=== PATIENT | female | born 1990 | race Caucasian/White ===

== ENCOUNTER 2020-05-21 16:36 | Outpatient (CLI) | payer OTHER, SELFPAY ==
--- NOTE | ~2020-05-21 | US_ITS ---
EXAMINATION: US OB /maternal detail DATE: 05/21/2020 19:01 INDICATION: Encounter for other specified screening. TECHNIQUE: Real-time ultrasound of the pelvis was performed. COMPARISON: None. FINDINGS: There is a single living fetus in vertex presentation. The placenta is fundal. heart rate is 1 57 beats per minute (bpm). The amniotic fluid volume is subjectively normal. The following biometric data were obtained: Biparietal diameter (BPD): 4.4 cm; head circumference (HC): 16.2 cm; abdominal circumference (AC): 12 .6 cm; femur length (FL): 3.0 cm. These measurements are discordant with HC/AC ratio > 95th percentile. Estimated weight is 255 g +/- 38 g, which correlates with 24th percentile when 10/14/20 is used a s estimated date of delivery. As single measurements, these parameters are each equal to the following estimated gestational ages: BPD: 19 weeks 1 days. HC: 19 weeks 0 days. AC: 18 weeks 1 days. FL: 19 weeks 2 days. estimated gestational age based solely on measurements from this exam is 18 weeks 6 days +/- 1 weeks 2 days. The cerebral ventricles, cerebellum, cisterna magna, nuchal fold, and visualized portions of the spin e are normal. The heart is normal. The diaphragm, stomach, kidneys, and bladder are normal. There are two umbilical arteries to yield a 3-vessel cord. The cord insertion is normal. IMPRESSION: 1. Single living fetus in vertex presentation. 2. Estimated weight is 255 g +/- 38 g, which correlates with 24th percentile when 10/14/20 is us ed as estimated date of delivery. 3. Normal anatomic survey. 4. HC/AC ratio > 95th percentile. Reviewed, dictated and finalized at location A. IMPRESSION: 1. Single living fetus in vertex presentation. 2. Estimated weight is 255 g +/- 38 g, which correlates with 24th percen tile when 3/8/21 is used as estimated date of delivery. 3. Normal anatomic survey. 4. HC/AC ratio > 95th percentile.
== END 2020-05-21 16:37 | disposition home or self-care (01) ==
PROVIDERS: Visit Provider Obstetrics & Gynecology
DX: Z36.89 Encounter for other specified antenatal screening (principal)
CPT/HCPCS: 76805

== ENCOUNTER 2020-08-13 15:30 | Outpatient (RCR) | payer OTHER, SELFPAY ==
[2020-08-13 15:38] VITALS: BMI 32.9
[2020-08-13 15:39] VITALS: BMI 32.9
== END 2020-10-21 14:42 | disposition home or self-care (01) ==
LOC: ANHDMC 15:30
PROVIDERS: Visit Provider Obstetrics & Gynecology
DX: O24.419 Gestational diabetes mellitus in pregnancy, unspecified control (principal); Z3A.00 Weeks of gestation of pregnancy not specified; Z71.3 Dietary counseling and surveillance; Z71.89 Other specified counseling
CPT/HCPCS: 97802; G0108

== ENCOUNTER 2020-08-23 14:31 | Outpatient (CLI) | payer OTHER, SELFPAY ==
--- NOTE | ~2020-08-23 | US_ITS ---
EXAMINATION: US OB follow up DATE: 08/23/2020 15:10 INDICATION: Gestational diabetes, third trimester TECHNIQUE: Real-time ultrasound of the pelvis was performed. The interpreting radiologist was not pre sent for the study. COMPARISON: 05/21/2020 FINDINGS: There is a single living fetus in breech presentation. The placenta is fundal/posterior. Fe mica cardiac activity and movement are noted. heart rate is 169 beats per minute (bpm). Th e amniotic fluid index is 10.3 cm which is normal. The following biometric data were obtained: Biparietal diameter (BPD): 8.0 cm; head circumference (HC): 19.4 cm; abdominal circumference (AC): 26 .2 cm; femur length (FL): 5.8 cm. These measurements are concordant. Estimated weight is 1630 g +/- 244 g, which correlates with the 5th percentile when 10/14/2020 is used as estimated date of delivery. As single measurements, these parameters are each equal to the following estimated gestational ages w ith ranges of +/- 2 standard deviations: BPD: 32 weeks 3 days +/- 3 weeks 1 days. HC: 32 weeks 3 days +/- 3 weeks 0 days. AC: 30 weeks 3 days +/- 3 weeks 0 days. FL: 30 weeks 3 days +/- 3 weeks 0 days. estimated gestational age based solely on measurements from this exam is 31 weeks 3 days +/- 2 weeks 1 days. IMPRESSION: 1. Single living fetus in breech presentation. 2. Normal amniotic fluid index. 3. Estimated weight is 1630 g +/- 244 g, which correlates with the 5th percentile when 10/14/2020 is used as estimated date of delivery. Reviewed, dictated and finalized at location A. NE METEOROLOGIST IMPRESSION: 1. Single living fetus in breech presentation. 2. Normal amniotic fluid index. 3. Estimated weight is 1630 g +/- 244 g, which correlates with the 5th pe rcentile when 10/14/2020 is used as estimated date of delivery.
== END 2020-08-23 14:32 | disposition home or self-care (01) ==
PROVIDERS: Visit Provider Obstetrics & Gynecology
DX: Z36.9 Encounter for antenatal screening, unspecified (principal); Z3A.31 31 weeks gestation of pregnancy
CPT/HCPCS: 76816

== ENCOUNTER 2020-09-09 16:32 | Outpatient (CLI) | payer OTHER, SELFPAY ==
[2020-09-09 17:24] LABS: Collection Time Urine 24 HOURS
[2020-09-09 17:25] LABS: Hematocrit 36.4 % (37.0-47.0); Hemoglobin 12.3 g/dL (12.0-15.0); Mean Corpuscular HGB Conc 33.8 g/dl (32-36); Mean Corpuscular Hemoglobin 30.7 pg (26-34); Mean Corpuscular Volume 90.8 fl (80-100); Mean Platelet Volume 11.3 fl (7.4-10.4); Platelet Count Result 203 k/mm3 (150-375); Red Blood Count 4.01 M/mm3 (4.2-5.4); Red Cell Distribution Width 14.5 % (11.5-14.5); White Blood Count 12.7 K/mm3 (4.5-10.0)
[2020-09-09 17:40] LABS: Alanine Aminotransferase 15 U/L (4-35); Albumin Level 3.3 g/dL (3.5-5.1); Alkaline Phosphatase 153 U/L (38-126); Anion Gap 6 mmol/L (8-16); Aspartate Amino Transferase 24 U/L (14-36); Bilirubin,Total 0.2 mg/dL (0.2-1.3); Blood Urea Nitrogen 10 mg/dL (7-17); Calcium 9.2 mg/dL (8.4-10.2); Carbon Dioxide 23 mmol/L (22-30); Chloride 107 mmol/L (98-107); Estimated Glomerular Filt Rate > 60; Glucose 68 mg/dL (65-105); Sodium 136 mmol/L (137-145); Uric Acid 4.5 mg/dL (2.5-7.5)
[2020-09-09 18:11] LABS: Total Volume 24 Hour Urine 2300 ml
[2020-09-09 18:12] LABS: Patient Weight 182 Lbs
[2020-09-09 19:17] LABS: Creatinine Clearance Urine 163.1 ml/min (75-125); Creatinine Urine 43.2 mg/dL; Total Protein Urine 24 Hr 276 MG/DAY (28-141); Total Protein Urine Random 12 mg/dL
== END 2020-09-09 16:33 | disposition home or self-care (01) ==
LOC: ANHLAB 16:34
PROVIDERS: Visit Provider Obstetrics & Gynecology
DX: O10.919 Unspecified pre-existing hypertension complicating pregnancy, unspecified trimester (principal); Z3A.00 Weeks of gestation of pregnancy not specified
CPT/HCPCS: 36415; 80053; 81050; 82575; 84156; 84550; 85027

== ENCOUNTER 2020-09-17 16:35 | Inpatient (IN) | payer OTHER, SELFPAY ==
[2020-09-17] VITALS (19 sets, daily range): BP systolic 124–172; BP diastolic 67–100; PULSE 79–101; RESP 20; TEMP 36.9–37.3; O2SAT 100; BMI 33.7
[2020-09-17 17:50] LABS: Basophils Percent Auto 0.2 % (0.2-1.2); Eosinophils Absolute Auto 0.1 K/mm3 (0-0.3); Hematocrit 41.1 % (37.0-47.0); Hemoglobin 13.9 g/dL (12.0-15.0); Immature Granulocyte Absolute 0.05 K/mm3 (0.00-0.031); Immature Granulocyte Percent A 0.4 % (0-0.5); Lymphocytes Absolute Auto 2.77 K/mm3 (0.9-3.2); Lymphocytes Percent Auto 22.2 % (18.3-44.2); Mean Corpuscular HGB Conc 33.8 g/dl (32-36); Mean Corpuscular Hemoglobin 30.2 pg (26-34); Mean Corpuscular Volume 89.3 fl (80-100); Mean Platelet Volume 10.8 fl (7.4-10.4); Monocytes Absolute Auto 1.1 K/mm3 (0.1-0.6); Monocytes Percent Auto 8.7 % (2.6-8.5); Neutrophils Absolute Auto 8.4 K/mm3 (1.3-6.7); Neutrophils Percent Auto 67.5 % (45.5-73.1); Platelet Count Result 226 k/mm3 (150-375); Red Cell Distribution Width 14.7 % (11.5-14.5); White Blood Count 12.5 K/mm3 (4.5-10.0)
[2020-09-17 18:01] LABS: Uric Acid 4.6 mg/dL (2.5-7.5)
[2020-09-17] MEDS: LACTATED RINGERS 1,000 ML 75 ML IV CONT (18:11)
[2020-09-17 18:13] LABS: Alanine Aminotransferase 20 U/L (4-35); Albumin Level 3.7 g/dL (3.5-5.1); Alkaline Phosphatase 204 U/L (38-126); Anion Gap 5 mmol/L (8-16); Aspartate Amino Transferase 29 U/L (14-36); Bilirubin,Total 0.3 mg/dL (0.2-1.3); Blood Urea Nitrogen 10 mg/dL (7-17); Calcium 9.3 mg/dL (8.4-10.2); Carbon Dioxide 23 mmol/L (22-30); Chloride 107 mmol/L (98-107); Estimated Glomerular Filt Rate > 60; Glucose 78 mg/dL (65-105); Potassium 4.1 mmol/L (3.4-5.0); Sodium 135 mmol/L (137-145)
[2020-09-17] MEDS: MAGNESIUM SULF 4 GM/WATER100ML 4 GM/100 ML BAG IVPB (18:18)
[2020-09-17] MEDS: DINOPROSTONE 10 MG VAG INSERT VAGINAL (18:22)
[2020-09-17] MEDS: BETAMETHASONE SOD PHOS/ACETATE 30 MG/5 ML VIAL 12 MG IM (18:26)
--- NOTE | 2020-09-17 18:30 | LDADM ---
This patient, Jaja Nicolas, was admitted to Labor/Delivery/Recovery 108 on 09/17/20 at 16:35. Plans for labor, pain management and were discussed with patient. Patient/family oriented to hospital policies and general routines including ID bracelet, bed and alarms, visiting hours, pain management, procedures, bathroom and other care routines, personal items, smoking policy, room service/diet and guest tray routines, infant security routines, and visiting hours. Patient/Family are encouraged to report perceived risks to care and to ask questions if they do not understand what they are told or what they should do. See OBIX for further documentation.
[2020-09-17 18:31] LABS: Glucose Point of Care 73 (65-105)
[2020-09-17] MEDS: MAGNESIUM SULF 20GM/WATER500ML 500 ML 50 MG IV CONT (18:50)
--- NOTE | 2020-09-17 19:06 | WPDANESEPP ---
Anes - Eval Pre Procedure Procedure: Labor epidural Date/Time: 09/17/20 19:06 Surgeon: Sean Preop Diagnosis: Abd pain with contractions Pre Op Diagnosis: Induction of Labor Patient Data Age: 30 Gender: F Height: Weight: Last Vital Signs Pulse 94 09/17/20 19:00 BP 147/98 H 09/17/20 19:00 Pulse Ox 100 09/17/20 17:50 Allergies Allergy/AdvReac Type Severity Reaction Status Date / Time clarithromycin Allergy Unknown hives Verified 09/13/20 11:14 Home Medications Medication Instructions Recorded Confirmed Type loratadine 10 mg tablet 10 mg PO DAILY PRN 05/01/20 09/17/20 History blood sugar diagnostic #400 ea 08/05/20 Rx blood-glucose meter #1 ea 08/05/20 History lancets #100 ea 08/05/20 History PNV cmb#95-ferrous fumarate-FA 1 tablet PO DAILY 09/16/20 09/17/20 History [] nifedipine 30 mg PO HS 09/17/20 09/17/20 History Laboratory Tests 09/17/20 09/17/20 09/17/20 17:40 17:40 17:40 WBC 12.5 K/mm3 H K/mm3 (4.5-10.0) RBC 4.60 M/mm3 M/mm3 (4.2-5.4) Hgb 13.9 g/dL g/dL (12.0-15.0) Hct 41.1 % % (37.0-47.0) MCV 89.3 fl fl (80-100) MCH 30.2 pg pg (26-34) MCHC 33.8 g/dl g/dl (32-36) RDW 14.7 % H % (11.5-14.5) Plt Count 226 k/mm3 k/mm3 (150-375) MPV 10.8 fl H fl (7.4-10.4) Immature Gran % (Auto) 0.4 % % (0-0.5) Neut % (Auto) 67.5 % % (45.5-73.1) Lymph % (Auto) 22.2 % % (18.3-44.2) [place] % (Auto) 8.7 % H % (2.6-8.5) Eos % (Auto) 1.0 % % (0-4.4) Baso % (Auto) 0.2 % % (0.2-1.2) Lymph # (Auto) 2.77 K/mm3 K/mm3 (0.9-3.2) [place] # (Auto) 1.1 K/mm3 H K/mm3 (0.1-0.6) Eos # (Auto) 0.1 K/mm3 K/mm3 (0-0.3) Baso # (Auto) 0.0 K/mm3 K/mm3 (0.0-0.1) Abs Immat Gran (auto) 0.05 K/mm3 H K/mm3 (0.00-0.031) Absolute Neuts (auto) 8.4 K/mm3 H K/mm3 (1.3-6.7) Absolute Nucleated RBC 0.0 K/mm3 K/mm3 (0.0-0.012) Nucleated RBC % 0.0 % % (0.0-0.2) Sodium 135 mmol/L L mmol/L (137-145) Potassium 4.1 mmol/L mmol/L (3.4-5.0) Chloride 107 mmol/L mmol/L (98-107) Carbon Dioxide 23 mmol/L mmol/L (22-30) Anion Gap 5 mmol/L L mmol/L (8-16) BUN 10 mg/dL mg/dL (7-17) Creatinine 0.40 mg/dL L mg/dL (0.7-1.0) Estim Creat Clear Calc Not Reportable Estimated GFR > 60 (59 - ) Glucose 78 mg/dL mg/dL (65-105) POC Capillary Glucose Uric Acid 4.6 mg/dL mg/dL (2.5-7.5) Calcium 9.3 mg/dL mg/dL (8.4-10.2) Total Bilirubin 0.3 mg/dL mg/dL (0.2-1.3) AST 29 U/L U/L (14-36) ALT 20 U/L U/L (4-35) Alkaline Phosphatase 204 U/L H U/L (38-126) Total Protein 7.0 g/dL g/dL (6.3-8.2) Albumin 3.7 g/dL g/dL (3.5-5.1) RPR 02/09/21 02/09/21 17:41 18:07 WBC RBC Hgb Hct MCV MCH MCHC RDW Plt Count MPV Immature Gran % (Auto) Neut % (Auto) Lymph % (Auto) [place] % (Auto) Eos % (Auto) Baso % (Auto) Lymph # (Auto) [place] # (Auto) Eos # (Auto) Baso # (Auto) Abs Immat Gran (auto) Absolute Neuts (auto) Absolute Nucleated RBC Nucleated RBC % Sodium Potassium Chloride Carbon Dioxide Anion Gap BUN Creatinine Estim Creat Clear Calc Estimated GFR Glucose POC Capillary Glucose 73 mg/dl mg/dl (65-105) Uric Acid Calcium Total Bilirubin AST ALT Alkaline Phosphatase Total Protein
[2020-09-17] MEDS: ACETAMINOPHEN 500 MG TABLET 1000 MG PO (19:59)
[2020-09-17 22:07] LABS: Glucose Point of Care 137 (65-105)
[2020-09-18] VITALS (113 sets, daily range): BP systolic 112–183; BP diastolic 42–105; PULSE 53–110; RESP 16–20; TEMP 36.6–37.4; O2SAT 80–100
[2020-09-18 02:05] LABS: Glucose Point of Care 153 (65-105)
[2020-09-18] MEDS: MAGNESIUM SULF 20GM/WATER500ML 500 ML 50 MG IV CONT ×2 (04:22→13:56)
[2020-09-18] MEDS: LACTATED RINGERS 1,000 ML 75 ML IV CONT ×2 (06:05→16:08)
[2020-09-18 06:17] LABS: Glucose Point of Care 140 (65-105)
[2020-09-18] MEDS: OXYTOCIN 30 UNITS/NS 500 ML 30 UNITS/500 ML BAG IV CONT (07:00)
--- NOTE | 2020-09-18 08:19 | PM.IMHP ---
H&P: HPI History of Present Illness Date/Time: 09/18/20 08:19 Chief Complaint: induction of labor Narrative: Jaja Nicolas is a 30 year old female G1 at 36+2 admitted 09/17 for induction of labor due to cHTN with superimposed preeclampsiia and IUGR per [facility] recommendations. She has slightly blurry vision since starting magnesiuim. She had one WHITE yesterday just after starting magnesium but it resolved with Tylenol. She feels contractions but not painful. Review of Systems Review of Systems: All systems reviewed & are unremarkable except as noted in HPI and below PMFSH Past Medical History Medical History Asthma Sports related EVANS I (cervical intraepithelial neoplasia I) 04/12/20 Gestational diabetes Hypertension affecting and not yet delivered Surgical History Surgical History History of colposcopy 04/12/20 [place] teeth removed Family History Family History Other Heart attack Hypertension Father Hyperlipidemia Hypertension Diabetes mellitus Grandparent Cerebrovascular accident Social History Social History Smoking status: Never smoker Alcohol intake: former Drinks per week: 10 Substance use: never Gender identity (if verbalized by the patient): Female Spiritual care concerns: No Meds Home Medications and Allergies Home Medications Medication Instructions Recorded Confirmed Type loratadine 10 mg tablet 10 mg PO DAILY PRN 05/01/20 09/17/20 History PNV cmb#95-ferrous fumarate-FA 1 tablet PO DAILY 09/16/20 09/17/20 History [] nifedipine 30 mg PO HS 09/17/20 09/17/20 History Allergies Allergy/AdvReac Type Severity Reaction Status Date / Time clarithromycin Allergy Unknown hives Verified 09/13/20 11:14 Vital Signs Vital Signs - 24 hr 09/17/20 17:34 09/17/20 17:45 09/17/20 17:49 Temperature Pulse Rate 79 79 Respiratory Rate Blood Pressure 172/98 H 159/93 H Pulse Oximetry 100 09/17/20 17:50 09/17/20 18:15 09/17/20 18:30 Temperature 37.3 C Pulse Rate 85 86 Respiratory Rate Blood Pressure 152/97 H 149/95 H Pulse Oximetry 100 09/17/20 18:45 09/17/20 18:50 09/17/20 19:00 Temperature Pulse Rate 87 94 Respiratory Rate 20 Blood Pressure 145/88 H 147/98 H Pulse Oximetry 09/17/20 19:15 09/17/20 19:30 09/17/20 19:45 Temperature Pulse Rate 88 92 99 Respiratory Rate Blood Pressure 124/69 138/75 152/97 H Pulse Oximetry 09/17/20 20:00 09/17/20 20:15 09/17/20 20:32 Temperature Pulse Rate 101 H 95 98 Respiratory Rate Blood Pressure 148/100 H 142/79 H 149/88 H Pulse Oximetry 09/17/20 20:45 09/17/20 21:00 09/17/20 22:04 Temperature 36.9 C Pulse Rate 97 96 99 Respiratory Rate 20 Blood Pressure 141/86 H 151/89 H 133/80 Pulse Oximetry 09/17/20 23:00 09/18/20 00:29 09/18/20 02:00 Temperature 36.7 C Pulse Rate 100 95 93 Respiratory Rate 18 Blood Pressure 155/67 H 138/76 147/83 H Pulse Oximetry 09/18/20 05:58 09/18/20 07:00 09/18/20 07:25 Temperature 36.6 C 36.6 C Pulse Rate 94 92 Respiratory Rate 20 Blood Pressure 147/85 H 156/89 H Pulse Oximetry 09/18/20 08:06 Temperature Pulse Rate 93 Respiratory Rate Blood Pressure 160/92 H Pulse Oximetry Exam Const: General: healthy appearing, no acute distress, alert and awake Resp: Auscultation: clear to auscultation bilaterally Cardio: Rate: regular rate Rhythm: regular rhythm GI: Inspection: non-distended GI Palp: Yes Soft to palpation, No Tenderness to palpation present (GI) and Yes Other GI palpation findings present (gravid) : Manual OB Exam: dilated 3 cm, effaced 25%, station -2 and other (soft, mid) Amniotic Fluid: clear (AROM performed with small andrew
[2020-09-18 10:05] LABS: Glucose Point of Care 129 (65-105)
[2020-09-18 12:08] LABS: Rapid Plasma Reagin Non-Reactive (NonReactive)
[2020-09-18 13:27] LABS: Glucose Point of Care 118 (65-105)
[2020-09-18 15:41] LABS: Glucose Point of Care 106 (65-105)
--- NOTE | 2020-09-18 16:02 | PM.OBPRVD ---
OB - Delivery Note Procedure Delivery date: 09/18/20 Procedure: events: Gestational Diabetes, Pre-Eclampsia and Labor Induction Intrapartal events: Severe Preeclampsia and Diabetes Induction method: AROM, per misoprostol protocol and per pitocin protocol Delivery monitor: external FHT and internal uterine Route of delivery: Laceration Description: Perineal - 2nd Degree Delivery repair: vicryl (2-0) Specimen: Yes Quantitative Blood Loss (ml): 132 Anesthesia type: Epidural Disposition: floor [place] Baby Date of : 09/18/20 Time of : 17:13 Weeks of gestation at delivery: 36 Infant gender: Female Weight (pounds): 4 Weight (ounces): 8 presentation: vertex position: Left Occiput Anterior Placenta delivery description: Spontaneous cord vessel description: 3 Vessels, Nuchal Cord, Loose, Reduced, Clamped/Cut and Delayed Cord Clamping score one minute: 8 score five minutes: 9
[2020-09-18] MEDS: OXYTOCIN 30 UNITS/NS 500 ML 30 UNITS/500 ML BAG 125 UNITS IV CONT (17:56)
--- NOTE | 2020-09-18 20:38 | OBPPTRN ---
Patient transferred to post room #283 via wheelchair. Support person present. Oriented to unit, room, information board, rooming in, admission packet and security measures. Patient verbalizes understanding.
[2020-09-18] MEDS: LABETALOL HCL 100 MG TABLET PO (22:28)
[2020-09-19] VITALS (9 sets, daily range): BP systolic 142–152; BP diastolic 81–96; PULSE 70–90; RESP 16–18; TEMP 36.6–36.8; O2SAT 99–100
[2020-09-19] MEDS: MAGNESIUM SULF 20GM/WATER500ML 500 ML 50 MG IV CONT ×2 (00:45→11:03)
[2020-09-19 04:59] LABS: Hematocrit 36.1 % (37.0-47.0); Hemoglobin 12.1 g/dL (12.0-15.0)
[2020-09-19] MEDS: LABETALOL HCL 100 MG TABLET PO ×2 (09:21→20:58)
[2020-09-19] MEDS: MULTIVIT/MIN/PREN/FOL AC/IRON TABLET 1 TAB PO (09:21)
--- NOTE | 2020-09-19 09:29 | WPDANLDPN2 ---
Anes-Prog Note L&D Date/Time: 09/19/20 09:29 Comfortable throughout: labor and delivery Neuraxial method: epidural Epidural/Spinal procedure site: clean & non-tender Neuro status: Neuro function grossly intact. Cardiovascular status: normal Respiratory status: normal Airway patency: baseline Mental status: baseline Post-Op hydration status: normal Vital Signs: Last Vital Signs Temp 36.7 C 09/19/20 04:00 Pulse 72 09/19/20 09:21 Resp 16 09/19/20 04:00 BP 142/95 H 09/19/20 04:00 Pulse Ox 99 09/19/20 04:00 Pain score (VAS): 3 I/O: Intake & Output 09/18/20 09/19/20 09/19/20 23:59 07:59 15:59 Intake Total 2400 1600 Output Total 100 2700 Balance 2300 -1100 Post-procedural complaints: none Patient feedback: Patient satisfied with anesthetic care.
--- NOTE | 2020-09-19 11:00 | PC.NURSE ---
0945 feeding note; visited with mother and present for feeding; Mother expressing strong preference to only breast feed baby; Per Dr. Muñoz today, baby can continue breast feeding, limiting at breast time to 10 minutes, and then is to be supplemented after breast feedings,with Similac Neosure 22 [place]. formula, and mother continue pumping. Nurse spent time explaining effective breast feedings, and teaching parents how to assess that baby is doing that, explaining that at 36 wks gestation baby is not able to give all the energy she needs to give to breast feed effectively and for as long as she needs to nurse each time. Baby unable to latch to breast, but did latch with nipple shield and demonstrated fairly vigorous sucking; baby did get sleepy after 10 minutes, and mother able to tell that baby's sucking was less effective after 10 minutes. FOB then bottle fed infant and mother pumped. Feeding plan of breast feed, bottle feed and pump started, and will continue q3h. Parents encouraged to call out for breast feeding assistance at every feeding. Mother reports that she has a Consult that she has already contacted. She will be talking to Sandy Mcleod RN IBCLC, with [employer]. Nurse affirmed her continued work with Sandy Mcleod after discharge.
--- NOTE | 2020-09-19 11:11 | PM.OBPNVD ---
OB - PN: Subj Subjective Date/time seen: 09/19/20 11:11 Patient comments: pain well controlled, tolerating diet and flatus present baby status: doing well feeding status: pumping and bottle feeding Narrative: Pain well controlled urinating without difficulty and UOP adequate on Mgso4 denies [place]/CP/SOB. blurry vision due to Mgso4. Baby girl doing well . Lochis like her menses OB - PN: Obj Data Labs CBC & Chem 7: 09/19/20 04:26 09/17/20 17:40 Labs: Laboratory Results - last 24 hr 09/17/20 09/18/20 09/18/20 17:41 13:24 15:35 Hgb Hct POC Capillary Glucose 118 H 106 RPR Non-reactive 09/19/20 04:26 Hgb 12.1 Hct 36.1 L POC Capillary Glucose RPR OB - PN A/P Assessment and Plan (1) Pre-eclampsia superimposed on chronic hypertension, delivered: Code(s): O11.4 - Pre-existing hypertension with pre-eclampsia, complicating childbirth; O10.92 - Unspecified pre-existing hypertension complicating childbirth Status: Acute Assessment and Plan: doing well BP in acceptable range on labetolol 100 mg bid No s/s of Mgso4 toxicity. will continue Mgso4 x 24 hr s/p diuresing well continue PP care. Time Spent With Patient Time: Total time spent is greater than 50% in coordination of care (as documented) at patient's floor/unit and/or counseling patient: Review of Systems Constitutional: Constitutional: Reports as per HPI, Denies chills, Denies fatigue and Denies headache(s) Eyes: Eyes: Reports as per HPI, Reports blurry vision (due to Mgso4), Denies change in vision and Denies diplopia ENT: Reports Normal hearing present Cardiovascular: Cardiovascular: Denies chest pain and Denies dyspnea Respiratory: Respiratory: Reports as per HPI, Denies cough and Denies dyspnea Gastrointestinal: Gastrointestinal: Reports as per HPI Genitourinary: Genitourinary: Reports as per HPI Exam Const: General: cooperative, healthy appearing, comfortable, no acute distress, well developed, alert, awake and Physically active Nutritional Appearance: well nourished Orientation/consciousness: patient oriented x3 Limitations: no limitations Resp: Effort & Inspection: able to speak in complete sentences Auscultation: clear to auscultation bilaterally Cardio: Rate: regular rate Rhythm: regular rhythm GI: Inspection: normal to inspection GI Palp: Yes Soft to palpation, Yes No hepatosplenomegaly present and Yes Other GI palpation findings present (fundus firm and below umbilicus) Auscultation: normal bowel sounds Rectal Exam: deferred Extrem: General: normal to inspection, full ROM and no calf tenderness Other: DTR +2 bilaterally
--- NOTE | 2020-09-19 15:45 | PC.NURSE ---
1430 pt states she wants to start hand expression to collect her breast milk. Nurse agreed, but pt also told to keep pumping at each feeding. She agreed. Baby's blood sugar more stable after supplementation started.
[2020-09-20 03:45] VITALS: BP 129/74; PULSE 70
[2020-09-20] MEDS: MULTIVIT/MIN/PREN/FOL AC/IRON TABLET 1 TAB PO (08:35)
[2020-09-20 08:36] VITALS: PULSE 76
[2020-09-20] MEDS: LABETALOL HCL 100 MG TABLET PO (08:36)
[2020-09-20 08:40] VITALS: BP 134/88; PULSE 76; RESP 18; TEMP 37.5; O2SAT 98
--- NOTE | 2020-09-20 09:29 | PM.OBPNVD ---
OB - PN: Subj Subjective Date/time seen: 09/20/20 09:29 Patient comments: no complaints, pain well controlled and other (Lochia similar to menses) [place] baby status: doing well Narrative: No WHITE, visual changes. Desires discharge home OB - PN: Obj Data Labs CBC & Chem 7: 09/19/20 04:26 09/17/20 17:40 OB - PN A/P Assessment and Plan (1) Pre-eclampsia superimposed on chronic hypertension, delivered: Code(s): O11.4 - Pre-existing hypertension with pre-eclampsia, complicating childbirth; O10.92 - Unspecified pre-existing hypertension complicating childbirth Status: Acute Assessment and Plan: Doing well with BP normal to mildly elevated on labetalol 100 mg bid. Continue labetalol and return to office in 1 week Plan day: 2 (s/p vaginal delivery, doing well) Plan: routine care, discharge home and other (Follow up in office in 1 week) Time Spent With Patient Time: Total time spent is greater than 50% in coordination of care (as documented) at patient's floor/unit and/or counseling patient: Exam Const: General: no acute distress GI: Inspection: other (Fundus firm and nontender below umbilicus) GI Palp: Yes Soft to palpation and No Tenderness to palpation present (GI) Extrem: General: no edema
--- NOTE | 2020-09-20 09:32 | P.DS_ITS ---
DS: Admitting Diagnosis Admitting Diagnosis Admitting Diagnosis: superimposed preeclampsia, IUGR DS: Discharge Diagnosis Discharge Diagnosis (1) Pre-eclampsia superimposed on chronic hypertension, delivered: Code(s): O11.4 - Pre-existing hypertension with pre-eclampsia, complicating childbirth; O10.92 - Unspecified pre-existing hypertension complicating childbirth Status: Acute (2) Encounter for induction of labor: Code(s): Z34.90 - Encounter for supervision of normal , unspecified, unspecified trimester Status: Acute OB - DS: Summary OB Procedures : PIH Mgmt OB Procedures Intrapartum: Spontaneous Vag Delivery OB Procedures: : None Peripartum Data Delivery Method: Natural Vaginal Laceration Description: Perineal - 2nd Degree Status at Discharge Functional status at discharge: independent ambulation Overall status at discharge: patient is progressing back to baseline Time Spent with Patient Time attestation: Total time spent providing and/or coordinating discharge services: Time spent: Less than 30 minutes DS: Data Data Completed and Pending Pending studies at discharge: Pending at discharge 09/18/20 17:27 Surgical [PTH] Routine Discharge Plan Discharge Attending physician on discharge: Christina Estrada Discharging Clinician: Christina Estrada Anticipated Discharge Date/Time: 09/20/20 17:00 Patient Disposition: Home, Self-Care Activity: may shower and pelvic rest Diet: as tolerated Patient Instructions: Antibiotic Form Stand Alone Forms: General Discharge Information Follow-up/Referrals: Christina Estrada MD [Physician] - 1 Week Discharge Medications: New ibuprofen 600 mg Tablet 600 mg PO Q6H PRN (Reason: Cramping) Qty: 60 RF: 0 labetalol 100 mg Tablet 100 mg PO Q12HR Qty: 60 RF: 0 Continued loratadine [Claritin] 10 mg tablet 10 mg PO DAILY PRN (Reason: Congestion) RF: 0 PNV cmb#95-ferrous fumarate-FA [] 28 mg iron- 800 mcg Tablet 1 tablet PO DAILY RF: 0 Discontinued nifedipine 30 mg tablet extended release 24hr 30 mg PO HS RF: 0 Date of admission: 09/17/20 16:35 Primary Care Provider: PHYSICIAN,CRUSHER SUPERVISOR Admitting Provider: Christina Estrada Attending physician on admission: Christina Estrada Condition: Stable
--- NOTE | 2020-09-20 09:32 | PC.NURSE ---
Consulted with patient, reviewed feeding cues, frequencies, duration of feedings, feeding elimination flow sheet, and signs of adequate intake. Encourage mom to call out for next feeding to have feeding assessed and to help patient with self expression. Nipple care reviewed. Instructed mother to call out for RN assistance if she is unable to latch infant for feeding or she has discomfort with nursing. Instructed feeding should be initiated three hours from start of last feeding or if feeding cues are noted before. Mother voiced understanding of information shared. Mother verbalizes she is able to independently latch infant with appropriate positioning/alignment. She denies any nipple discomfort, is feeding as required and waking to feed if needed. Infant has had 12 effective feedings with the nipple shield in the past 24 hours, and is currently meeting outcomes for weight, output, and feeding frequencies. Infant is on bililights and will reassess bilirubin level prior to discharge. Mother states she feels confident to continue effective at home. Reviewed transition to breast milk, signs of adequate intake, and engorgement/relief. Instructed to call ICP if intake/output less than required. Reviewed community resources on the [facility] website and in the Mom/Baby guide. Information on outpatient services provided. Mother has no further questions at this time.
--- NOTE | 2020-09-20 11:02 | PC.NURSE ---
Consulted with patient, reviewed feeding cues, frequencies, duration of feedings, feeding elimination flow sheet, and signs of adequate intake. Demonstrated stimulation techniques to wake for feeding. Mom independently latched to breast with nipple shield. Attempted x3-4 times without shield, latches to breast but does not continue to suck. Encouraged mom to keep attempting without the shield at each session. Reviewed positioning/alignment, holding breast and asymmetrical latch on. was able to latch correctly. nursed eagerly, with steady draws and occasional swallowing noted. Reviewed signs of a correct latch, effective nursing and suck swallow ratio. Infant was able to maintain latch without discomfort to mother. Nipple care reviewed. Instructed mother to call out for RN assistance if she is unable to latch infant for feeding or she has discomfort with nursing.
--- NOTE | 2020-09-20 11:24 | PC.NURSE ---
Mom pumping after with use of nipple shield. Encouraged [id number], breast massage and manual expression to stimulate supply. Pumping log provided and reviewed. Assessed patient for correct flange size, placement and draw. Patient verbalizes and demonstrates understanding of instructions.
[2020-09-20 11:45] VITALS: BP 136/81; PULSE 79; RESP 18; O2SAT 98
[2020-09-21 14:17] VITALS: BP 207/112; PULSE 74; RESP 20; TEMP 36.9; O2SAT 100
== END 2020-09-20 17:58 | disposition home or self-care (01) | DRG 807 ==
LOC: ANHLDR 09-18 10:38 → ANHOB2 09-18 20:38
PROVIDERS: Admitting Provider Obstetrics & Gynecology; Visit Provider Obstetrics & Gynecology
DX: O14.14 Severe pre-eclampsia complicating childbirth (principal); Z37.0 Single live birth; O36.5930 Maternal care for other known or suspected poor fetal growth, third trimester, not applicable or unspecified; O24.429 Gestational diabetes mellitus in childbirth, unspecified control; O13.4 Gestational [pregnancy-induced] hypertension without significant proteinuria, complicating childbirth; Z3A.36 36 weeks gestation of pregnancy; O70.1 Second degree perineal laceration during delivery
CPT/HCPCS: 36415; 80053; 82948; 84112; 84550; 85014; 85018; 85025; 86592; 86850; 86900; 86901; 88307; A9270; J0702; J2590; J2795; J3475; J7120

== ENCOUNTER 2020-09-21 15:58 | Outpatient (CLI) | payer OTHER, SELFPAY ==
[2020-09-21] VITALS (15 sets, daily range): BP systolic 142–177; BP diastolic 78–110; PULSE 66–85
[2020-09-21 16:52] LABS: Basophils Absolute Auto 0.1 K/mm3 (0.0-0.1); Basophils Percent Auto 0.4 % (0.2-1.2); Eosinophils Absolute Auto 0.7 K/mm3 (0-0.3); Eosinophils Percent Auto 3.8 % (0-4.4); Hematocrit 36.1 % (37.0-47.0); Hemoglobin 11.9 g/dL (12.0-15.0); Immature Granulocyte Absolute 0.15 K/mm3 (0.00-0.031); Immature Granulocyte Percent A 0.9 % (0-0.5); Lymphocytes Absolute Auto 3.33 K/mm3 (0.9-3.2); Lymphocytes Percent Auto 19.6 % (18.3-44.2); Mean Corpuscular Hemoglobin 30.3 pg (26-34); Mean Corpuscular Volume 91.9 fl (80-100); Mean Platelet Volume 10.4 fl (7.4-10.4); Monocytes Absolute Auto 1.4 K/mm3 (0.1-0.6); Monocytes Percent Auto 8.2 % (2.6-8.5); Neutrophils Absolute Auto 11.4 K/mm3 (1.3-6.7); Neutrophils Percent Auto 67.1 % (45.5-73.1); Platelet Count Result 242 k/mm3 (150-375); Red Blood Count 3.93 M/mm3 (4.2-5.4); Red Cell Distribution Width 15.4 % (11.5-14.5)
[2020-09-21] MEDS: NIFEdipine 30 MG TAB.ER.24 PO (17:00)
[2020-09-21 17:17] LABS: Alanine Aminotransferase 31 U/L (4-35); Albumin Level 3.5 g/dL (3.5-5.1); Alkaline Phosphatase 126 U/L (38-126); Anion Gap 4 mmol/L (8-16); Aspartate Amino Transferase 38 U/L (14-36); Bilirubin,Total 0.3 mg/dL (0.2-1.3); Blood Urea Nitrogen 9 mg/dL (7-17); Calcium 9.5 mg/dL (8.4-10.2); Carbon Dioxide 29 mmol/L (22-30); Chloride 103 mmol/L (98-107); Estimated Glomerular Filt Rate > 60; Glucose 89 mg/dL (65-105); Lactate Dehydrogenase 566 U/L (313-618); Potassium 4.4 mmol/L (3.4-5.0); Sodium 136 mmol/L (137-145); Uric Acid 5.5 mg/dL (2.5-7.5)
--- NOTE | 2020-09-21 18:16 | PC.NURSE ---
Dr Mock updated on BP's and Labs. Increase Labetalol to 200 TID, Take Procardia 30 mg daily, May dc home if BP's 140's/90's.
[2020-09-21] MEDS: LABETALOL HCL 100 MG TABLET 200 MG PO (18:29)
--- NOTE | 2020-09-21 21:06 | PC.NURSE ---
2101- Called Dr. Mock. updated on pt BP readings. ok to d/c home with instructions to take Labetalol 200 mg TID and Procadia XL 30mg at 8am. pt to call office on Wednesday morning and make appt for f/u and to have meds refilled.
== END 2020-09-21 21:25 | disposition home or self-care (01) ==
LOC: ANHOBOP 16:05 → ANHOBPP 16:06
PROVIDERS: Visit Provider Obstetrics & Gynecology
DX: O13.9 Gestational [pregnancy-induced] hypertension without significant proteinuria, unspecified trimester (principal); Z3A.00 Weeks of gestation of pregnancy not specified
CPT/HCPCS: 36415; 80053; 83615; 84550; 85025; 99199; A9270

== ENCOUNTER 2021-11-27 15:46 | Outpatient (CLI) | payer OTHER, SELFPAY ==
--- NOTE | 2021-12-02 07:42 | WPDHOLTEREM ---
Holter/Event Monitor Holter/Event Monitor Date of procedure: 11/27/21 Holter/Event Procedure: 24 Hr Holter Monitor Indications: Palpitations Conclusion: 1. 24 hour holter monitor on 11/27/21. 2. Underlying rhythm is sinus rhythm. HR range 56-162 bpm; average HR 78 bpm. HR at 162 bpm at 17:46. 3. There are 1 premature supraventricular complex. No supraventricular tachycardia. 4. There are 4,207 premature ventricular complexes, 3 ventricular couplets, and 351 ventricular trigeminy. No ventricular tachycardia. 5. No sinoatrial or atrioventricular blocks. No significant pauses greater than 2 seconds. 6. Patient reports symptoms of lightheadedness, skip beats, chest/head pressure which demonstrate sinus rhythm, HR range 71-94 bpm with 2 out of 3 episodes having PVC's.
== END 2021-11-27 15:47 | disposition home or self-care (01) ==
LOC: ANHCARD 15:47
PROVIDERS: PCP Family Medicine; Visit Provider Family Medicine
DX: R00.2 Palpitations (principal)
CPT/HCPCS: 93225; 93226

== ENCOUNTER 2022-09-14 11:41 | Outpatient (CLI) | payer OTHER, SELFPAY ==
--- NOTE | ~2022-09-14 | XR_ITS ---
XR hysterosalpingogram DATE: 09/14/2022 13:45 INDICATION: Female infertility associated with anovulation TECHNIQUE: Spot images and fluoroscopy were performed during a hysterosalpingogram procedure. COMPARISON: None FINDINGS: Normal uterine cavity outline. Normal size and patency of the fallopian tubes with bilatera l peritoneal spillage. IMPRESSION: Normal hysterosalpingogram Reviewed, dictated and finalized at [facility]. Reviewed, dictated and finalized at location [facility]. RACTIVE MEDIA DIRECTOR IMPRESSION: Normal hysterosalpingogram
[2022-09-14 12:53] LABS: Beta HCG Quantitative < 2.39 mIU/ML
--- NOTE | 2022-10-06 17:44 | PM.OP ---
Procedure Note - Brief Procedure Note - Brief Date of procedure: 10/06/22 Pre-op diagnosis: Female infertility associated with anovulation Same Post-op diagnosis: Same Procedure performed: HSG technical component Description of procedure: after informed consent was obtained patient was placed on the procedure table. She was placed in lithotomy position the speculum was inserted. The cervix was cleaned with Betadine. The single-tooth tenaculum was placed on anterior lip of the cervix. The cannula and the introducer was placed at the cervix. The cannula was inserted into the uterine cavity and was secured with the balloon. Once radiologist arrived then while on fluoro the dye was injected until bilateral fill and spill was visualized. Approximately 30 cc of dye was used. EBL minimal patient tolerated procedure well the speculum and tenaculum were removed hemostasis noted. Surgeon: David Magaña MD Drains: No Packing: No Pathology: None sent Complications: No immediate complications Condition: Stable Disposition: Other ( Home) Findings: bilateral fill and spill normal appearing uterine cavity.
== END 2022-09-14 11:42 | disposition home or self-care (01) ==
PROVIDERS: PCP Family Medicine; Visit Provider Obstetrics & Gynecology
DX: N97.0 Female infertility associated with anovulation (principal)
CPT/HCPCS: 36415; 58340; 74740; 84702

== ENCOUNTER 2022-12-01 11:34 | Outpatient (CLI) | payer OTHER, SELFPAY ==
[2022-12-01 12:23] LABS: Kit Draw Collected
== END 2022-12-01 11:35 | disposition home or self-care (01) ==
LOC: ANHGOSHLAB 11:37
PROVIDERS: PCP Family Medicine; Visit Provider Family Medicine
DX: I10 Essential (primary) hypertension (principal); E88.81 Metabolic syndrome and other insulin resistance
CPT/HCPCS: 36415

== ENCOUNTER 2023-05-10 11:25 | Outpatient (CLI) | payer OTHER, SELFPAY ==
--- NOTE | ~2023-05-10 | US_ITS ---
EXAMINATION: US OB <=14 wk fetus w TV DATE: 05/10/2023 12:07 INDICATION: Spotting complicating . TECHNIQUE: Real-time transabdominal and transvaginal pelvic ultrasound was performed. COMPARISON: None. FINDINGS: TRANSABDOMINAL ULTRASOUND: The uterus measures 12.7 x 6.1 x 10.0 cm. TRANSVAGINAL ULTRASOUND: There is an intrauterine gestational sac. The crown rump length measur es 6.4 cm, which correlates with an estimated gestational age of 12 weeks and 5 day(s) (+/-) 1 week(s ) and 1 day(s). heart motion is identified measuring 155 beats per minute (bpm) by M-mode Doppl er. The right ovary measures 3.3 x 3.3 x 2.2 cm. The left ovary measures 1.7 x 2.2 x 2.0 cm. There is no free fluid in the pelvis. IMPRESSION: 1. Single living intrauterine gestation with estimated date of delivery of 11/17/2023. Reviewed, dictated and finalized at location [facility]. IMPRESSION: 1. Single living intrauterine gestation with estimated date of delivery of 11/07.
== END 2023-05-10 11:26 | disposition home or self-care (01) ==
PROVIDERS: PCP Family Medicine; Visit Provider Obstetrics & Gynecology
DX: O26.851 Spotting complicating pregnancy, first trimester (principal); Z3A.00 Weeks of gestation of pregnancy not specified
CPT/HCPCS: 76801; 76817

== ENCOUNTER 2023-10-27 08:43 | Outpatient (CLI) | payer OTHER, SELFPAY ==
[2023-10-27 09:56] LABS: Hematocrit 32.6 % (37.0-47.0); Hemoglobin 10.6 g/dL (12.0-15.0); Mean Corpuscular HGB Conc 32.5 g/dl (32-36); Mean Corpuscular Hemoglobin 29.4 pg (26-34); Mean Corpuscular Volume 90.3 fl (80-100); Mean Platelet Volume 10.3 fl (7.4-10.4); Platelet Count Result 233 k/mm3 (150-375); Red Blood Count 3.61 M/mm3 (4.2-5.4); Red Cell Distribution Width 13.4 % (11.5-14.5); White Blood Count 10.8 K/mm3 (4.5-10.0)
[2023-10-27 10:14] LABS: Creatinine Urine 137.4 mg/dL
[2023-10-27 10:27] LABS: Alanine Aminotransferase 12 U/L (6-35); Albumin Level 3.4 g/dL (3.5-5.1); Alkaline Phosphatase 110 U/L (38-126); Anion Gap 4 mmol/L (8-16); Aspartate Amino Transferase 18 U/L (14-36); Bilirubin,Total 0.3 mg/dL (0.2-1.3); Blood Urea Nitrogen 12 mg/dL (7-17); Carbon Dioxide 23 mmol/L (22-30); Chloride 106 mmol/L (98-107); Estimated Glomerular Filt Rate > 60; Glucose 93 mg/dL (65-110); Potassium 4.1 mmol/L (3.4-5.0); Sodium 133 mmol/L (137-145); Uric Acid 4.5 mg/dL (2.5-7.5)
[2023-10-27 11:22] LABS: Total Protein Urine Random < 5 mg/dL; Ur Ttl Prot Creatinine Ratio < 0.04 mg/mg (0-0.20)
[2023-10-27 12:55] LABS: Lactate Dehydrogenase 133 U/L (120-246)
== END 2023-10-27 08:44 | disposition home or self-care (01) ==
LOC: ANHLAB 08:45
PROVIDERS: PCP Family Medicine; Visit Provider Nurse Practitioner Family
DX: O13.9 Gestational [pregnancy-induced] hypertension without significant proteinuria, unspecified trimester (principal); Z3A.00 Weeks of gestation of pregnancy not specified
CPT/HCPCS: 36415; 80053; 82570; 83615; 84156; 84550; 85027

== ENCOUNTER 2023-10-29 09:48 | Outpatient (CLI) | payer OTHER, SELFPAY ==
[2023-10-29 11:43] LABS: Total Volume 24 Hour Urine 2350 ml
[2023-10-29 11:53] LABS: Total Protein Urine 24 Hr 211 mg/24hr (28-141); Total Protein Urine Random 9 mg/dL
== END 2023-10-29 09:49 | disposition home or self-care (01) ==
LOC: ANHLAB 09:49
PROVIDERS: PCP Family Medicine; Visit Provider Nurse Practitioner Family
DX: O13.9 Gestational [pregnancy-induced] hypertension without significant proteinuria, unspecified trimester (principal); Z3A.00 Weeks of gestation of pregnancy not specified
CPT/HCPCS: 81050; 84156

== ENCOUNTER 2023-11-04 06:49 | Inpatient (IN) | payer OTHER, SELFPAY ==
[2023-11-04] VITALS (63 sets, daily range): BP systolic 114–184; BP diastolic 56–116; PULSE 61–83; RESP 16–18; TEMP 36.9–37.3; O2SAT 95–100; BMI 35.0
--- NOTE | 2023-11-04 07:28 | LDADM ---
This patient, Jaja Nicolas, was admitted to Labor/Delivery/Recovery 107 on 11/04/23 at 06:49. Plans for labor, pain management and were discussed with patient. Patient/family oriented to hospital policies and general routines including ID bracelet, bed and alarms, visiting hours, pain management, procedures, bathroom and other care routines, personal items, smoking policy, room service/diet and guest tray routines, infant security routines, and visiting hours. Patient/Family are encouraged to report perceived risks to care and to ask questions if they do not understand what they are told or what they should do. See OBIX for further documentation.
[2023-11-04 07:44] LABS: Basophils Percent Auto 0.1 % (0.2-1.2); Eosinophils Absolute Auto 0.1 K/mm3 (0-0.3); Hematocrit 33.8 % (37.0-47.0); Hemoglobin 10.9 g/dL (12.0-15.0); Immature Granulocyte Percent A 0.7 % (0-0.5); Lymphocytes Absolute Auto 1.89 K/mm3 (0.9-3.2); Mean Corpuscular HGB Conc 32.2 g/dl (32-36); Mean Corpuscular Hemoglobin 29.5 pg (26-34); Mean Corpuscular Volume 91.4 fl (80-100); Mean Platelet Volume 10.4 fl (7.4-10.4); Monocytes Absolute Auto 0.9 K/mm3 (0.1-0.6); Monocytes Percent Auto 6.9 % (2.6-8.5); Neutrophils Absolute Auto 10.5 K/mm3 (1.3-6.7); Neutrophils Percent Auto 77.3 % (45.5-73.1); Platelet Count Result 248 k/mm3 (150-375); Red Cell Distribution Width 13.6 % (11.5-14.5); White Blood Count 13.5 K/mm3 (4.5-10.0)
[2023-11-04] MEDS: LACTATED RINGERS 1,000 ML 125 ML IV CONT ×2 (07:55→11:40)
[2023-11-04] MEDS: OXYTOCIN 30 UNITS/NS 500 ML 30 UNITS/500 ML BAG IV CONT (07:55)
[2023-11-04 07:59] LABS: Alanine Aminotransferase 13 U/L (6-35); Albumin Level 3.5 g/dL (3.5-5.1); Alkaline Phosphatase 123 U/L (38-126); Anion Gap 6 mmol/L (4-12); Aspartate Amino Transferase 17 U/L (14-36); Bilirubin,Total 0.2 mg/dL (0.2-1.3); Blood Urea Nitrogen 11 mg/dL (7-17); Calcium 9.4 mg/dL (8.4-10.2); Carbon Dioxide 21 mmol/L (22-30); Chloride 105 mmol/L (98-107); Estimated CRCL calculation 138 ml/min; Estimated Glomerular Filt Rate > 60; Glucose 111 mg/dL (65-110); Sodium 132 mmol/L (137-145); Uric Acid 4.1 mg/dL (2.5-7.5)
[2023-11-04 08:40] LABS: Rapid Plasma Reagin Non-Reactive (NonReactive)
[2023-11-04] MEDS: LABETALOL HCL 100 MG TABLET PO (09:07)
[2023-11-04 09:22] LABS: Glucose Point of Care 82 mg/dl (65-105)
--- NOTE | 2023-11-04 11:27 | WPDANESEPP ---
Anes - Eval Pre Procedure Procedure: labor epidural Date/Time: 11/04/23 11:27 Surgeon: Archana Preop Diagnosis: Pain during labor Pre Op Diagnosis: IOL Patient Data Age: 33 Gender: F Height: 1.57 m Weight: 87 kg Last Vital Signs Temp 37.2 C 11/04/23 09:53 Pulse 72 11/04/23 11:00 Resp 18 11/04/23 09:53 BP 137/96 H 11/04/23 11:00 O2 Del Method Room Air 11/04/23 07:25 Allergies Allergy/AdvReac Type Severity Reaction Status Date / Time clarithromycin Allergy Unknown hives Verified 11/03/23 11:31 Home Medications Medication Instructions Recorded Confirmed Type cholecalciferol (vitamin D3) 25 25 mcg PO DAILY 06/03/23 11/04/23 History mcg (1,000 unit) capsule ferrous sulfate 325 mg (65 mg 325 mg PO TID 06/03/23 11/04/23 History iron) tablet vitamins no.85-iron 10 1 cap PO DAILY 06/03/23 11/04/23 History mg-folate no.1 1 mg-dha 200 mg capsule blood-glucose meter (OneTouch #1 ea 08/16/23 11/04/23 Rx Verio Flex Meter) blood sugar diagnostic (OneTouch #120 ea 10/01/23 11/04/23 Rx Verio test strips) lancets 33 gauge #360 ea 10/04/23 11/04/23 Rx insulin glargine 100 unit/mL 34 unit subcut BID 10/21/23 11/04/23 History subcutaneous solution (Lantus U-100 Insulin) labetalol 100 mg tablet 100 mg BID 10/21/23 11/04/23 History Laboratory Tests 11/04/23 11/04/23 07:11 09:11 WBC 13.5 H K/mm3 (4.5-10.0) RBC 3.70 L M/mm3 (4.2-5.4) Hgb 10.9 L g/dL (12.0-15.0) Hct 33.8 L % (37.0-47.0) MCV 91.4 fl (80-100) MCH 29.5 pg (26-34) MCHC 32.2 g/dl (32-36) RDW 13.6 % (11.5-14.5) Plt Count 248 k/mm3 (150-375) MPV 10.4 fl (7.4-10.4) Immature Gran % (Auto) 0.7 H % (0-0.5) Neut % (Auto) 77.3 H % (45.5-73.1) Lymph % (Auto) 14.0 L % (18.3-44.2) [place] % (Auto) 6.9 % (2.6-8.5) Eos % (Auto) 1.0 % (0-4.4) Baso % (Auto) 0.1 L % (0.2-1.2) Lymph # (Auto) 1.89 K/mm3 (0.9-3.2) [place] # (Auto) 0.9 H K/mm3 (0.1-0.6) Eos # (Auto) 0.1 K/mm3 (0-0.3) Baso # (Auto) 0.0 K/mm3 (0.0-0.1) Abs Immat Gran (auto) 0.10 H K/mm3 (0.00-0.031) Absolute Neuts (auto) 10.5 H K/mm3 (1.3-6.7) Absolute Nucleated RBC 0.000 K/mm3 (0.0-0.012) Nucleated RBC % 0.0 % (0.0-0.2) Sodium 132 L mmol/L (137-145) Potassium 4.0 mmol/L (3.4-5.0) Chloride 105 mmol/L (98-107) Carbon Dioxide 21 L mmol/L (22-30) Anion Gap 6 L mmol/L (4-12) BUN 11 mg/dL (7-17) Creatinine 0.50 L mg/dL (0.7-1.0) Estim Creat Clear Calc 138 ml/min Estimated GFR > 60 (59 - ) Glucose 111 H mg/dL (65-110) POC Capillary Glucose 82 mg/dl (65-105) Uric Acid 4.1 mg/dL (2.5-7.5) Calcium 9.4 mg/dL (8.4-10.2) Total Bilirubin 0.2 mg/dL (0.2-1.3) AST 17 U/L (14-36) ALT 13 U/L (6-35) Alkaline Phosphatase 123 U/L (38-126) Total Protein 7.0 g/dL (6.3-8.2) Albumin 3.5 g/dL (3.5-5.1) RPR Non-reactive (NonReactive) Blood Type AB Positive Antibody Screen Negative Patient hx anesthesia problems: none Family hx anesthesia problems: none Results Review: All pre-operative results and documents have been reviewed as part of the pre-operative evaluation. [facility] Past Medical History Medical History Anovulatory cycle Asthma Sports related Chronic hypertension with superimposed preeclampsia EVANS I (cervical intraepithelial neoplasia I) 04/12/20 Female infertility, unexplained Gestational diabetes Gestational hypertension Hypertension affecting Intrauterine growth restriction (IUGR) affecting care of mother, third trimester, single gestation Pre-eclampsia superimposed on chronic hypertension,
[2023-11-04 12:18] LABS: Glucose Point of Care 86 mg/dl (65-105)
[2023-11-04] MEDS: OXYTOCIN 30 UNITS/NS 500 ML 30 UNITS/500 ML BAG 125 UNITS IV CONT (13:55)
--- NOTE | 2023-11-04 14:39 | PM.IMHP ---
H&P: HPI History of Present Illness Date/Time: 11/04/23 14:39 Chief Complaint: Induction of labor Narrative: Patient at 38 weeks PNC significant for gestational diabetes insulin requiring and chronic hypertension, blood pressures stable on medications, no signs or symptoms of pre-eclampsia. Review of Systems Review of Systems: All systems reviewed & are unremarkable except as noted in HPI and below Constitutional: Constitutional: Reports no additional constitutional complaints and Denies headache(s) Eyes: Eyes: Denies spots in vision ENT: Reports system reviewed and no additional complaints, except as documented and Denies headache(s) Cardiovascular: Cardiovascular: Denies chest pain and Denies dyspnea Respiratory: Respiratory: Denies dyspnea Gastrointestinal: Gastrointestinal: Reports no additional gastrointestinal complaints Genitourinary: Genitourinary: Reports amenorrhea Musculoskeletal: Musculoskeletal: Reports no additional musculoskeletal complaints Integumentary/Breasts: Skin/Breast: Denies breast mass and Denies rash Neurologic: Denies headache(s) Psychiatric: Psychiatric: Reports no additional psychiatric complaints [facility] Past Medical History Medical History Anovulatory cycle Asthma Sports related Chronic hypertension with superimposed preeclampsia EVANS I (cervical intraepithelial neoplasia I) 04/12/20 Female infertility, unexplained Gestational diabetes Gestational hypertension Hypertension affecting Intrauterine growth restriction (IUGR) affecting care of mother, third trimester, single gestation Pre-eclampsia superimposed on chronic hypertension, delivered and not yet delivered Surgical History Surgical History History of colposcopy 04/12/20 [place] teeth removed Family History Family History Other Heart attack Hypertension Father Hyperlipidemia Hypertension Diabetes mellitus Grandparent Cerebrovascular accident Social History Social History Smoking status: Never smoker Alcohol intake: former Drinks per week: 10 Substance use: never Do You Feel Safe in your Home?: Yes Lack of Transportation: No Lack of Food: Never True Current Housing: I Have Housing Concerned About Future Housing: No Difficulty Paying Gas/Electric Bills: No Difficulty Paying for Meds: No Currently Unemployed: No Education: Bachelor's Degree Difficulty w/ Childcare or Family Care: No Gender identity (if verbalized by the patient): Female Spiritual care concerns: No Meds Home Medications and Allergies Home Medications Medication Instructions Recorded Confirmed Type cholecalciferol (vitamin D3) 25 25 mcg PO DAILY 06/03/23 11/04/23 History mcg (1,000 unit) capsule ferrous sulfate 325 mg (65 mg 325 mg PO TID 06/03/23 11/04/23 History iron) tablet vitamins no.85-iron 10 1 cap PO DAILY 06/03/23 11/04/23 History mg-folate no.1 1 mg-dha 200 mg capsule blood-glucose meter (OneTouch #1 ea 08/16/23 11/04/23 Rx Verio Flex Meter) blood sugar diagnostic (OneTouch #120 ea 10/01/23 11/04/23 Rx Verio test strips) lancets 33 gauge #360 ea 10/04/23 11/04/23 Rx insulin glargine 100 unit/mL 34 unit subcut BID 10/21/23 11/04/23 History subcutaneous solution (Lantus U-100 Insulin) labetalol 100 mg tablet 100 mg BID 10/21/23 11/04/23 History Allergies Allergy/AdvReac Type Severity Reaction Status Date / Time clarithromycin Allergy Unknown hives Verified 11/03/23 11:31 Vital Signs Vital Signs - 24 hr 11/04/23 07:25 11/04/23 07:37 11/04/23 07:45 Temperature Pulse Rate 77 76 Respiratory Rate Blood Pressure 134/80 125/81 Pulse Oximetry Oxygen Delivery Room Air 11/04/23 08:02 0
--- NOTE | 2023-11-04 14:40 | PM.OBPNVD ---
OB - PN: Subj Subjective Date/time seen: 11/04/23 0815 Cat 1, AROM clear, /2. OB - PN: Obj Data Labs 11/04/23 07:11 11/04/23 07:11 Labs: Laboratory Results - last 24 hr 11/04/23 11/04/23 11/04/23 07:11 09:11 12:15 WBC 13.5 H RBC 3.70 L Hgb 10.9 L Hct 33.8 L MCV 91.4 MCH 29.5 MCHC 32.2 RDW 13.6 Plt Count 248 MPV 10.4 Immature Gran % (Auto) 0.7 H Neut % (Auto) 77.3 H Lymph % (Auto) 14.0 L [place] % (Auto) 6.9 Eos % (Auto) 1.0 Baso % (Auto) 0.1 L Lymph # (Auto) 1.89 [place] # (Auto) 0.9 H Eos # (Auto) 0.1 Baso # (Auto) 0.0 Abs Immat Gran (auto) 0.10 H Absolute Neuts (auto) 10.5 H Absolute Nucleated RBC 0.000 Nucleated RBC % 0.0 Sodium 132 L Potassium 4.0 Chloride 105 Carbon Dioxide 21 L Anion Gap 6 L BUN 11 Creatinine 0.50 L Estim Creat Clear Calc 138 Estimated GFR > 60 Glucose 111 H POC Capillary Glucose 82 86 Uric Acid 4.1 Calcium 9.4 Total Bilirubin 0.2 AST 17 ALT 13 Alkaline Phosphatase 123 Total Protein 7.0 Albumin 3.5 RPR Non-reactive Blood Type AB Positive Antibody Screen Negative OB - PN A/P Time Spent With Patient Time: Total time spent is greater than 50% in coordination of care (as documented) at patient's floor/unit and/or counseling patient:
--- NOTE | 2023-11-04 14:40 | PM.OBPRVD ---
OB - Vaginal Delivery Note Procedure Delivery date: 11/04/23 Events: Chronic Hypertension and Gestational Diabetes Induction method: Per Pitocin Protocol Delivery augmentation: Rupture of Membranes Delivery monitor: External FHT Route of delivery: Episiotomy description: None Laceration Description: Perineal - 1st Degree Delivery repair: vicryl (3.0 vicryl) Specimen: No Quantitative Blood Loss (ml): 200 Anesthesia type: Epidural Disposition: Floor Complications: No immediate complications Narrative: She was admitted for [facility] due to chronic hypertension and insulin requiring gestational diabetes. Pitocin initiated. Blood sugar range during labor 84-122. She had AROM clear. She progressed to active labor. She requested epidural. She dilated to complete and delivered a male . Peds available for delivery. placed on maternal abdomen after nose and mouth suctioned at perineum. vigorously crying and placed on maternal abdomen.Cord noted to be short and doubly clamped and cut. Terminal meconium noted. [place] Baby Date of : 11/04/23 Time of : 13:15 Weeks of gestation at delivery: 38 Infant gender: Male Weight (pounds): 6 Weight (ounces): 1 presentation: vertex position: Right Occiput Anterior Placenta delivery description: Spontaneous Cord Vessel Description: 3 Vessels score one minute: 7 score five minutes: 9 AMG Delivery Billing Delivery Delivery: Delivery Charge
--- NOTE | 2023-11-04 16:04 | OBPPTRN ---
Patient transferred to post room #291 via wheelchair. Support person present. Oriented to unit, room, information board, rooming in, admission packet and security measures. Patient verbalizes understanding.
--- NOTE | 2023-11-04 16:09 | PC.NURSE ---
[id number] Introductions were made while mother was recovering in LDR rm 107. Consulted with patient to assess needs related to . Discussed with mother her?plans to feed?her infant, the?experience so far with latching for a few sucks, then stopping. Infant is in the nursery for blood sugar testing. Mother pumped and fed her first infant for 1 year. We reviewed how to hand express and patient demonstrated learning. Encouraged understanding of the benefits of skin to skin (demonstrating unwrapping and placing upright on her chest), stimulating with massage touch, changing positions to encourage wakefulness, how to watch for early feeding cues, responsive feeding, feeding on demand (aiming for 8-12 times in 24 hours, about every 2-3 hours), milk production, hand expression, building/maintaining a milk supply, duration of feeding, and consider initiating pumping if doesn't latch and effectively breastfeed. Resources provided for inpatient and outpatient services here at [place]. Mother voiced understanding of information and will call if there is a request for assistance. Infants blood sugar is 57mg/dl and brought to mother and transported together to the PP floor.
[2023-11-05] MEDS: IBUPROFEN 600 MG TABLET PO ×3 (04:20→19:36)
[2023-11-05 04:45] VITALS: BP 111/70; PULSE 79; RESP 16; TEMP 36.6; O2SAT 99
[2023-11-05 04:53] LABS: Hematocrit 29.6 % (37.0-47.0); Hemoglobin 9.5 g/dL (12.0-15.0)
--- NOTE | 2023-11-05 07:38 | WPDANLDPN2 ---
Anes-Prog Note L&D Date/Time: 11/05/23 07:38 Neuro status: Neuro function grossly intact. Cardiovascular status: normal Respiratory status: normal Airway patency: baseline Mental status: baseline Post-Op hydration status: normal Vital Signs: Last Vital Signs Temp 36.6 C 11/05/23 04:45 Pulse 79 11/05/23 04:45 Resp 16 11/05/23 04:45 BP 111/70 11/05/23 04:45 Pulse Ox 99 11/05/23 04:45 O2 Del Method Room Air 11/04/23 20:00 Pain score (VAS): 0 I/O: Intake & Output 11/04/23 11/04/23 11/05/23 15:59 23:59 07:59 Intake Total 1500 Output Total 200 Balance 1300 Post-procedural complaints: none Patient feedback: Patient satisfied with anesthetic care.
[2023-11-05 08:05] VITALS: BP 128/78; PULSE 78; RESP 18; TEMP 36.6; O2SAT 99
[2023-11-05 11:33] VITALS: BP 124/66; PULSE 77; RESP 16; TEMP 37.1; O2SAT 98
--- NOTE | 2023-11-05 12:28 | PC.NURSE ---
[id number] Consulted with patient to assess needs related to . Discussed with mother her successes, concerns and any questions she has. Mother shared that a nipple shield was introduced last night due to flat nipples . We reviewed working with the , supporting breast, protecting her nipples with an optimal deep latch, good positioning, and good hand washing. Encouraged understanding the benefits of skin to skin, responding to feeding cues, frequencies of feeding 8-12 times in 24 hours (approximately 2-3 hours), duration of feedings, milk production, and the risks, benefits, usage, care and purpose for using a nipple shield (nipple shield savanna). Infant holds the posterior tongue up in the mouth and jaw is tight. Encouraged [id number], massage touch especially around infants face and jaw to help relax, RN JEFF did allow infant to suck on gloved finger briefly, then turn the finger to encourage infant to put tongue down and out. Infants sucking pattern is similar to an infant who has sucked on the tip of a nipple shield. Reviewed positioning and alignment, supporting breast, off-centered (asymmetrical latch) and leading with the chin with big, open, wide gape. We attempted to latch with a nipple shield and infant doesn't latch appropriately to the nipple shield. With working with mother assisting her with the sandwich hold, stimulating her everted nipples, attempting to hand express, then infant latched optimally to the left breast in football position with mother supporting her breast with a sandwich U-hold. Education given to the mother of how to visualize the suckling (with good rocking jaw motion) swallows (dropping of the lower jaw) and did not demonstrate swallows. The infant was able to maintain latch without discomfort to mother. Nipple care reviewed with optimal latch, good positioning and using clean hands when touching her breast. Mother is uncertain if she can latch her independently on her own and is familiar with pumping for milk production as she did that for her first child. Reminded mother to pump every 3 hours (8 times in 24 hours) 1-2 times at night if is not latching or is receiving supplemental bottles of formula. Resources used to facilitate learning were used from the visual handouts/ tool/mom and baby guide. Mother voiced understanding of the education shared, to call for assistance if the does not latch or if there is discomfort with . Reported to the Primary RN.
[2023-11-05 16:10] VITALS: BP 122/77
--- NOTE | 2023-11-05 19:38 | PM.OBPNVD ---
OB - PN: Subj Subjective Date/time seen: 11/05/23 19:38 Patient comments: pain well controlled, tolerating diet and other (Decreasing lochia.) baby status: doing well and nursing well OB - PN: Obj Data Labs 11/05/23 04:10 11/04/23 07:11 Labs: Laboratory Results - last 24 hr 11/05/23 04:10 Hgb 9.5 L Hct 29.6 L OB - PN A/P Plan day: 1 Plan: routine care Comments: Patient doing well. Time Spent With Patient Time: Total time spent is greater than 50% in coordination of care (as documented) at patient's floor/unit and/or counseling patient: Exam Psych: Affect: normal affect Other: Abd: fundus firm below umbilicus, nontender Perineum: healing Ext: nontender
[2023-11-05 20:30] VITALS: BP 118/70; PULSE 78; RESP 16; TEMP 36.6; O2SAT 97
[2023-11-06 00:30] VITALS: BP 111/64; PULSE 74
[2023-11-06 05:28] VITALS: BP 103/60; PULSE 78
[2023-11-06 08:52] VITALS: BP 131/84; PULSE 75; RESP 16; TEMP 36.8; O2SAT 99
[2023-11-08 10:20] VITALS: BP 144/89; PULSE 72; RESP 18; TEMP 36.8; O2SAT 100
--- NOTE | 2023-11-24 15:11 | PM.OBDSVD ---
DS: Admitting Diagnosis Discharge Date 11/06/23 Admitting Diagnosis Medical induction of labor DS: Discharge Diagnosis Discharge Diagnosis (1) Chronic hypertension: Code(s): I10 - Essential (primary) hypertension Status: Acute (2) Gestational diabetes: Qualifiers: Gestational diabetes mellitus control: unspecified Trimester: second trimester Qualified Code(s): O24.419 - Gestational diabetes mellitus in , unspecified control Code(s): O24.419 - Gestational diabetes mellitus in , unspecified control Status: Acute (3) Supervision of high risk , unspecified, second trimester: Code(s): O09.92 - Supervision of high risk , unspecified, second trimester Status: Acute OB - DS: Summary Hospital Course Hospital Course: She was admitted for medical induction of labor on 11/04/23 due to chronic hypertension and also gestational diabetes insulin requiring. She had uncomplicated vaginal delivery on 11/04/2023. day 1 she was doing well baby was doing well. She had adequate pain control she was ambulating well lochia was decreasing. She was discharged home on day 2. OB Procedures : NST and Ultrasound OB Procedures Intrapartum: Spontaneous Vag Delivery OB Procedures: : None Peripartum Data Delivery Method: Natural Vaginal Laceration Description: Perineal - 1st Degree Episiotomy description: None Time Spent with Patient Time attestation: Total time spent providing and/or coordinating discharge services: DS: Data Data Completed and Pending Completed studies during hospitalization: Pending at discharge 11/04/23 14:04 Surgical [PTH] Routine Discharge Plan Discharge Consulting providers: Tang Marcelino; Pema Jernigan Discharging Clinician: Gaudencio Sylvester Patient Disposition: Home, Self-Care Activity: as tolerated and pelvic rest Diet: regular Discharge Instructions: Education: Mom and Baby Guide Given to: Mother Follow-Up: Call your delivering provider's office for an appointment to be seen in: call your OB office to schedule a follow up appt Mom and baby should come to the [facility] for the follow-up appointment. Appointment Date/Time: November 08, 2023 at 10:00 am What to expect at your follow-up visit: Blood Pressure Check Physical Assessment Call [phone] if you are unable to keep your appointment time. BREAST CARE: * Wear a snug supportive bra. * For engorgement discomfort: Breast Feeding: * Apply warm moist washcloths * Express milk as needed to relieve engorgement * Wear loose clothing Bottle Feeding: * May apply ice packs * For sore nipples: * Identify correct latch-on * Apply warm moist washcloths before and after nursing * Air dry nipples after nursing * May apply Lansinoh cream to nipples PERINEAL CARE: * Until bleeding stops, use your levy bottle after urinating * Change your pad frequently throughout the day * You may take sitz baths several times a day (fill your bathtub with warm water and soak for 20 minutes.) Do NOT bathe in the water * No tub baths until seen by your physician - You may shower ACTIVITY: * Rest as much as possible. * Do not exercise or lift anything heavier than your baby (such as laundry or other children.) * Avoid stairs or driving as much as possible. * Do not put anything into the vagina. No douching, tampons, or sexual activity until seen by physician. NOTIFY PHYSICIAN IF YOU HAVE ANY QUESTIONS OR IF ANY OF THE FOLLOWING SYMPTOMS OCCUR: * If your vaginal bleeding becomes foul smelling. * If your vaginal bleeding becomes more heavy than a period or if your bleeding changes from pink to bright red. However, you may pass an occasional walnut-sized clot once or twice for the first week . * If you experience a sh
== END 2023-11-06 10:36 | disposition home or self-care (01) | DRG 807 ==
LOC: ANHLDR 06:55 → ANHOB2 11-06 08:00 → ANHLDR 11-09 06:54 → ANHOB2 11-09 06:54
PROVIDERS: Admitting Provider Obstetrics & Gynecology; PCP Family Medicine; Visit Provider Student in an Organized Health Care Education/Training Program
DX: O10.92 Unspecified pre-existing hypertension complicating childbirth (principal); Z37.0 Single live birth; Z3A.38 38 weeks gestation of pregnancy; O70.0 First degree perineal laceration during delivery; O24.424 Gestational diabetes mellitus in childbirth, insulin controlled
CPT/HCPCS: 36415; 80053; 82948; 84550; 85014; 85018; 85025; 86592; 86850; 86900; 86901; 88307; A9270; J2590; J2795; J7120